=== PATIENT | male | born 1945 | race Caucasian/White ===

== ENCOUNTER 2024-04-12 10:05 | Day surgery (SDC) | payer MEDICARE, BC, SELFPAY ==
--- NOTE | 2024-04-11 06:18 | EKG_ITS ---
[facility] Test Date: 2024-04-11 Pat Name: HUDSON QUINTANILLA Department: Room: - Gender: Male Tax Compliance Representative: JUDI : 1945 Requested By: Brayden Veliz Order Number: [id number] Reading MD: Brayden Veliz Measurements Intervals [place] Rate: 47 P: [place]: QRS: -55 QRSD: 158 T: 49 QT: 480 QTc: 429 Interpretive Statements ATRIAL FIBRILLATION WITH SLOW VENTRICULAR RESPONSE RIGHT BUNDLE BRANCH BLOCK LEFT ANTERIOR FASCICULAR BLOCK POSSIBLE LEFT VENTRICULAR HYPERTROPHY POSSIBLE SEPTAL MYOCARDIAL INFARCTION , OF INDETERMINATE AGE No previous ECG available for comparison /[id number]/[id number]
[2024-04-11 07:37] VITALS: BMI 23.5
[2024-04-11 09:44] LABS: Basophils # (Auto) 0.1 Thou/mm3 (0.0-0.2); Basophils % (Auto) 1 % (0-2.5); Eosinophils # (Auto) 0.2 Thou/mm3 (0.0-0.5); Eosinophils % (Auto) 3 % (0-10); Hematocrit 41.3 % (41.0-53.0); Hemoglobin 13.5 g/dL (13.5-16.0); Immature Granulocytes % (Auto) 0 % (0-0); Immature Granulocytes Auto 0.02 Thou/mm3 (0.00-0.00); Lymphocytes # (Auto) 2.3 Thou/mm3 (1.0-4.8); Lymphocytes % (Auto) 25 % (10-50); Mean Corpuscular HGB Conc 32.7 g/dl (31.0-37.0); Mean Corpuscular Hemoglobin 28.5 pg (25.0-35.0); Mean Corpuscular Volume 87 fL (80-100); Monocytes # (Auto) 0.9 Thou/mm3 (0.0-0.8); Monocytes % (Auto) 9 % (0-12); Neutrophils # (Auto) 5.9 Thou/mm3 (1.8-7.7); Neutrophils % (Auto) 63 % (37-80); Nucleated Red Blood Cell % 0 /100 WBC (0); Platelet Count 297 Thou/mm3 (140-440); RDW Standard Deviation 49.1 fL (35.1-43.9); Red Blood Count 4.74 Miln/mm3 (4.50-5.90); White Blood Count 9.3 Thou/mm3 (3.8-10.6)
[2024-04-11 10:11] LABS: Alanine Aminotransferase 28 U/L (10-49); Albumin, Serum 4.6 gm/dL (3.4-4.8); Albumin/Globulin Ratio 2.1 (1.2-2.2); Alkaline Phosphatase 125 U/L (46-116); Anion Gap 7 (7-16); Aspartate Amino Transferase 23 U/L (0-34); BUN/Creatinine Ratio 23 Ratio (12-20); Bilirubin,Total 1.6 mg/dL (0.3-1.2); Blood Urea Nitrogen 18 mg/dL (9-23); Calcium 9.7 mg/dL (8.3-10.6); Calcium (Corrected) 9.7 mg/dL (8.5-10.1); Carbon Dioxide 28.2 mMol/L (20.0-31.0); Chloride 107 mMol/L (98-107); Creatinine (Component) 0.8 mg/dL (0.6-1.3); Estimated Creatinine Clearance 73.6 mL/min (>60); Globulin 2.2 gm/dL (2.3-3.5); Glucose 104 mg/dL (74-106); Osmolality,Calculated 285 (275-295); Sodium 142 mMol/L (136-145); Total Protein 6.8 gm/dL (5.7-8.2); eGFR > 60 See Note
--- NOTE | 2024-04-11 14:24 | SUR.PREOP ---
EKG reviewed with Dr Yeung. 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
[2024-04-12 09:57] VITALS: BP 147/73; PULSE 51; RESP 14; TEMP 36.7; O2SAT 98; BMI 23.0
[2024-04-12] MEDS: RINGERS LACTATED 1000 ML 1,000 ML 20 ML IV (10:44)
--- NOTE | 2024-04-12 11:57 | PD.SUROPNT ---
Date of Procedure 04/12/24 Pre Op Diagnosis Right lateral chest wall soft tissue mass Post Op Diagnosis Right lateral chest wall subfascial soft tissue mass Procedure Excision of subfascial soft tissue mass from right lateral chest Findings An approximately 3.5 cm lipomatous subfascial mass in the right lateral chest wall Procedure Description Patient brought into the operating room in supine position. After administration of monitored anesthesia care, patient was placed in left lateral decubitus position. His right lateral chest wall was prepped and draped in the standard surgical manner. After administration of local anesthesia an approximately 4 cm incision was made over the mass and dissection was deepened into soft tissue. The mass was palpated and noted to be subfascial. The fascia was opened and the mass was circumferentially dissected out of surrounding muscle with electrocautery. The mass was measuring to be approximately 3.5 cm, it was lipomatous in nature. The wound was washed and irrigated. Hemostasis was adequate and satisfactory. Fascia reapproximated with interrupted sutures using 2-0 Vicryl. Subcutaneous tissue closed with interrupted sutures using 2-0 Vicryl and the incision was closed with 4-0 Monocryl in subcuticular fashion. Dermabond applied. Patient tolerated procedure well. He was placed in supine position. He was breathing spontaneously and without difficulty and was transferred to postanesthesia care in stable condition. Instruments, needles and sponge counts were reported to be correct x 2. Anesthesia MAC and local Pathology / specimen Other (Right lateral chest wall mass) Estimated Blood Loss 2 Condition Stable Disposition PACU Surgeon Brayden Veliz MD Surgical Staff Operation Date: 04/12/24 12:15 <No data on this case meets the specified criteria>
[2024-04-12 12:00] VITALS: BP 112/56; PULSE 51; RESP 18; TEMP 36.8; O2SAT 100
--- NOTE | 2024-04-12 12:00 | SUR.PHASEII ---
pt received from OR in recovery bay 7. pt awake and alert, breathing unlabored on room air. v/s stable. pt dressing right chest dermabond x1 cdi. report received from Humza PEDROZA and Xiomara LEACH.
[2024-04-12 12:05] VITALS: BP 134/75; PULSE 47; RESP 19; TEMP 36.8; O2SAT 99
[2024-04-12 12:10] VITALS: BP 150/76; PULSE 50; RESP 21; TEMP 36.6; O2SAT 98
[2024-04-12 12:15] VITALS: BP 145/65; PULSE 49; RESP 15; TEMP 36.6; O2SAT 100
--- NOTE | 2024-04-12 12:20 | SUR.PHASEII ---
Addendum entered by Laura Vegas RN 04/12/24 13:05: error on surgical site instead dermabond to right chest clean, dry and intact. Original Note: 1220: report received from HANY Gomez. pt alert and oriented. denies any pain or discomfort. dermabond to left upper back clean, dry and intact.
[2024-04-12 12:30] VITALS: BP 146/74; PULSE 43; RESP 18; TEMP 36.3; O2SAT 99
--- NOTE | 2024-04-12 12:40 | SUR.PHASEII ---
1240: pt discharge to home via wheelchair. pt alert and oriented x3. denies any pain or discomfort. derma aldana to right chest clean, dry and intact. discharge instructions given to Gilbert-friend and pt, verbalizes understanding. all belongings brought given back to patient.
== END 2024-04-12 12:40 | disposition home or self-care (01) ==
PROVIDERS: Anesthesiology; PCP Internal Medicine; Referring Provider Surgery; Visit Provider Surgery
PROC: (CPT 21552; principal; 2024-04-12 12:00)
DX: D17.1 Benign lipomatous neoplasm of skin and subcutaneous tissue of trunk (principal); Z01.810 Encounter for preprocedural cardiovascular examination
CPT/HCPCS: 21552; 36415; 80053; 85025; 93005; A4649; J0736; J2250; J3010; J3490; J7120